=== PATIENT | female | born 1970 | race Caucasian/White ===

== ENCOUNTER 2018-10-30 13:49 | Emergency (ER) | payer OTHER ==
[~2018-10-30] VITALS: Ht 170.2 cm; Wt 91.0 kg
[~2018-10-30 13:49] MED LIST: CLIN300C8 PO; IBUP200T44 PO; MECL25TA3 PO
[2018-10-30 14:03] VITALS: BP 136/89
--- NOTE | 2018-10-30 15:26 | ED.ADGEN ---
Past History Past Medical History: Anxiety, MRSA, Other Past Surgical History: Appendectomy Smoking: Non-smoker Alcohol Use: Occasionally Drug Use: None Adult General Chief Complaint Chief Complaint Headache, paresthesias, anxiety state HPI HPI Patient is a 48-year-old female presents with nasal congestion, rhinorrhea, sinus pain, paresthesias of upper extremities and left eyes subconjunctival hemorrhage. Patient reports upper respiratory symptoms for the past 2 days with generalized feeling of unwellness. Reports increased headache started today. Patient was with her son who is also a patient in the emergency department when she decided to check in. Blood pressure noted be elevated 180s over 80s. Patient states blood pressure is normally well controlled. Does report left subconjunctival hemorrhage this morning after blowing nose. Denies fever, neck stiffness, radicular symptoms. Patient is concerned that she may be premenopausal and has had recent weight gain and increased anxiety. She has not spoken with her primary care physician regarding these symptoms. No other acute symptoms or complaints. Review of Systems Review of Systems Review symptoms as per history of present illness. All other systems were reviewed and found to be within normal limits, except as documented in this note. Allergies Allergies Allergies Coded Allergies Type Severity Reaction Last Updated Verified Sulfa (Sulfonamide Antibiotics) Allergy Intermediate Nausea and Vomiting No Physical Exam Physical Exam Constitutional: Well developed, well nourished, no acute distress, non-toxic appearance. [] HENT: Normocephalic, atraumatic, bilateral external ears normal, oropharynx moist, no oral exudates, nose normal. [] Eyes: PERRLA, EOMI, left eye, some conjunctival hemorrhage. [] Neck: Normal range of motion, no tenderness, supple, no stridor. [] Cardiovascular:Heart rate regular rhythm, no murmur [] Lungs & Thorax: Bilateral breath sounds clear to auscultation [] Abdomen: Bowel sounds normal, soft, no tenderness, no masses, no pulsatile masses. [] Skin: Warm, dry, no erythema, no rash. [] Back: No tenderness, no CVA tenderness. [] Extremities: No tenderness, no cyanosis, no clubbing, ROM intact, no edema. [] Neurologic: Alert and oriented X 3, normal motor function, normal sensory function, no focal deficits noted. [] Psychologic: Affect normal, judgement normal, mood normal. [] Current Patient Data Vital Signs Vital Signs Date Time Temp Pulse Resp B/P (MAP) Pulse Ox O2 Delivery O2 Flow Rate FiO2 10/30/18 14:03 98.3 78 20 99 Room Air EKG EKG [] Radiology/Procedures Radiology/Procedures [] Course & Med Decision Making Course & Med Decision Making Pertinent Labs and Imaging studies reviewed. (See chart for details) [Symptoms appear to be combination of upper respiratory tract symptoms and increased anxiety. Patient prefers supportive care and outpatient follow-up. I think this is reasonable.] Final Impression Final Impression [#1 headache #2 per respiratory tract infection # 3 anxiety state] Dragon Disclaimer Dragon Disclaimer This electronic medical record was generated, in whole or in part, using a voice recognition dictation system. KYLEIGH MUÑOZ DO Oct 30, 2018 15:26
== END 2018-10-30 15:20 | disposition home or self-care (01) ==
LOC: ER 13:49
DX: R51 Headache (principal); J98.8 Other specified respiratory disorders; F41.9 Anxiety disorder, unspecified; H11.32 Conjunctival hemorrhage, left eye; Z86.14 Personal history of Methicillin resistant Staphylococcus aureus infection; Z88.2 Allergy status to sulfonamides
CPT/HCPCS: 99284

== ENCOUNTER → 2019-02-16 | Outpatient (CLI) | payer OTHER ==
--- NOTE | 2019-02-16 13:00 | RAD ---
Complete abdominal ultrasound dated 02/16/2019. No comparison available. Clinical data indication: Nausea and bloating. FINDINGS: Liver is homogeneous in echogenicity. No focal hepatic mass. Intrahepatic and extrahepatic biliary tree are normal in caliber. The common bile duct measures 4 mm. Gallbladder normal in size and echogenicity. No gallbladder wall thickening or para cholecystic fluid. No gallstones are seen. Right kidney measures 10.2 cm in length. Left kidney measures 10.6 cm in length. No hydronephrosis. Spleen is homogeneous in echogenicity and measures 9.8 cm longitudinal dimension. Limited visualized portions of the pancreas aorta and IVC unremarkable. No significant ascites. IMPRESSION: 1. No acute sonographic abnormality. Electronically signed by: Tyrone Hardy MD (02/16/2019 12:57 PM) [id number]
--- NOTE | 2019-02-16 13:48 | RAD ---
Pelvic ultrasound dated 02/16/2019. No comparison available. Clinical data indication: Bloating and nausea. FINDINGS: Transabdominal and transvaginal imaging performed. Uterus measures 8.3 x 6.1 x 3.9 cm. No focal uterine mass. Endometrial complex is normal in thickness for age measuring 11 mm. Right ovary measures 2.4 x 2.3 x 2.7 cm. Left ovary measures 5.8 x 6.9 x 3.5 cm. There is a large simple appearing cyst at the left ovary that measures up to 3.4 cm. Smaller cyst at the right ovary measuring 1.2 cm. No apparent solid adnexal mass. Small amount of free pelvic fluid. IMPRESSION: 1. Bilateral ovarian cysts, measuring up to 3.4 cm on the left. 2. Mildly thickened endometrial complex, nonspecific. This could be related to menstrual cycle. Correlate clinically. 3. Small amount of free pelvic fluid, nonspecific. Electronically signed by: Tyrone Hardy MD (02/16/2019 1:45 PM) [facility]
== END | disposition home or self-care (01) ==
LOC: US 08:19
PROVIDERS: ATTEND Surgery
DX: N83.202 Unspecified ovarian cyst, left side (principal); N83.201 Unspecified ovarian cyst, right side
CPT/HCPCS: 76700; 76830; 76856

== ENCOUNTER → 2019-03-04 | Outpatient (CLI) | payer OTHER ==
[~2019-03-04] VITALS: Ht 170.2 cm; Wt 83.9 kg
[~2019-03-04] MED LIST changes: +SINCALIDE 1.68 MCG in IV NORMAL SALINE 50ML 30 ML IV ONE
--- NOTE | 2019-03-04 12:14 | RAD ---
Radionuclide hepatobiliary scan with gallbladder ejection fraction, 03/04/2019: HISTORY: Right upper quadrant pain Following IV injection of 5.5 mCi of technetium 99m Choletec there was prompt uptake of the radionuclide from the blood stream by the liver. Activity is present in the bile ducts and gallbladder at 10 minutes. Small bowel activity developed at 25 minutes. Additional imaging of the gallbladder was then performed following IV injection of 1.7 mcg of cholecystokinin. The gallbladder ejection fraction was calculated at 71 percent. IMPRESSION: 1. Normal radionuclide hepatobiliary scan. 2. The gallbladder ejection fraction is 71 percent. Electronically signed by: Mansoor Ghotra MD (03/04/2019 12:12 PM) [facility]
== END | disposition home or self-care (01) ==
LOC: NM 07:30
PROVIDERS: ATTEND Surgery
DX: R10.11 Right upper quadrant pain (principal)
CPT/HCPCS: 78227; A9537; J2805

== ENCOUNTER → 2019-03-25 | Outpatient (CLI) | payer OTHER ==
[~2019-03-25] MED LIST changes: -SINCALIDE 1.68 MCG in IV NORMAL SALINE 50ML 30 ML IV ONE
--- NOTE | 2019-03-25 12:54 | RAD ---
Radionuclide gastric emptying study, 03/25/2019: HISTORY: Nausea The study was performed utilizing a solid test meal radiolabeled with 2 mCi of technetium 99m sulfur colloid. The following gastric retention values were obtained: 1 hour-46 percent 2 hours-26 percent 3 hours-19 percent 4 hours-6 percent. These values are in the normal range. IMPRESSION: Normal gastric emptying study. Electronically signed by: Mansoor Ghotra MD (03/25/2019 12:52 PM) [facility]
== END | disposition home or self-care (01) ==
LOC: NM 07:54
PROVIDERS: ATTEND Surgery
DX: R11.0 Nausea (principal)
CPT/HCPCS: 78264; A9541

== ENCOUNTER 2021-10-07 08:42 | Emergency (ER) | payer OTHER ==
[~2021-10-07] VITALS: Ht 322.6 cm; Wt 87.0 kg
[~2021-10-07 08:42] MED LIST changes: +CLIN-95 PO; -CLIN300C8 PO; +MECL-75 PO; -MECL25TA3 PO
[2021-10-07 08:50] VITALS: BP 131/89
[2021-10-07] MEDS ORDERED: IOHEXOL 350 MG/ML 100 ML VIAL. IV ONE (09:15)
[2021-10-07] MEDS ORDERED: IV NORMAL SALINE 1,000ML 1,000 ML IV SCH (09:15)
--- NOTE | 2021-10-07 09:16 | PHYS DOC ---
Past History Past Medical History: Anxiety, MRSA, Other Past Surgical History: Appendectomy Smoking: Non-smoker Alcohol Use: Occasionally Drug Use: None General Adult EDM: Chief Complaint: RECTAL BLEED HPI: HPI: Patient is a 51-year-old female who presents to the emergency department for abdominal pain, bloating, increased gas and rectal bleeding that started 2 days ago. Patient reports that she had bright red blood while wiping 2 days ago and feels a lump near her rectum. Patient states that she does have a history of hemorrhoids. She is reporting midline lower abdominal cramping that she rates 4 out of 10. It is worse after eating. Patient has a history of diverticulitis and gallstones. She denies any nausea, vomiting, diarrhea, fevers, urinary symptoms. Her vital signs are stable and she is in no acute distress. Review of Systems: Review of Systems: Constitutional: See HPI GI: See HPI : See HPI Current Medications: Current Meds: Current Medications Medications (Trade) Dose Ordered Sig/Alex Start Time Stop Time Status Last Admin Dose Admin Fentanyl Citrate (Fentanyl 2ml Vial) 50 mcg 1X ONCE 10/07/21 09:15 10/07/21 09:16 UNV Iohexol (Omnipaque 350 Mg/ml) 100 ml 1X ONCE 10/07/21 09:15 10/07/21 09:16 UNV Sodium Chloride 1,000 ml @ 1,000 mls/hr Q1H 10/07/21 09:15 10/07/21 10:14 UNV Allergies: Allergies: Allergies Coded Allergies Type Severity Reaction Last Updated Verified Sulfa (Sulfonamide Antibiotics) Allergy Intermediate Nausea and Vomiting 04/29/14 No Physical Exam: PE: Constitutional: Well developed, well nourished, no acute distress, non-toxic appearance. [] HENT: Normocephalic, atraumatic, bilateral external ears normal, oropharynx moist, no oral exudates, nose normal. [] Eyes: PERRL, EOMI, conjunctiva normal, no discharge. [] Neck: Normal range of motion, no stridor Cardiovascular:Heart rate regular rhythm, no murmur [] Lungs & Thorax: Bilateral breath sounds clear to auscultation [] Abdomen: Bowel sounds normal, soft, lower midline abdominal tenderness with palpation, no masses, no pulsatile masses. [] Skin: Warm, dry, no erythema, no rash. [] Back: No tenderness Extremities: No tenderness, no cyanosis, no clubbing, ROM intact, no edema. [] Neurologic: Alert and oriented X 3, normal motor function, normal sensory function, no focal deficits noted. [] Psychologic: Affect normal, judgement normal, mood normal. [] Current Patient Data: Labs: Laboratory Tests Test 10/07/21 09:30 White Blood Count 5.9 x10^3/uL Red Blood Count 4.94 x10^6/uL Hemoglobin 13.3 g/dL Hematocrit 40.3 % Mean Corpuscular Volume 82 fL Mean Corpuscular Hemoglobin 27 pg Mean Corpuscular Hemoglobin Concent 33 g/dL Red Cell Distribution Width 14.9 % Platelet Count 262 x10^3/uL Neutrophils (%) (Auto) 57 % Lymphocytes (%) (Auto) 35 % Monocytes (%) (Auto) 6 % Eosinophils (%) (Auto) 1 % Basophils (%) (Auto) 1 % Neutrophils # (Auto) 3.4 x10^3uL Lymphocytes # (Auto) 2.1 x10^3/uL Monocytes # (Auto) 0.3 x10^3/uL Eosinophils # (Auto) 0.1 x10^3/uL Basophils # (Auto) 0.0 x10^3/uL Sodium Level 141 mmol/L Potassium Level 4.3 mmol/L Chloride Level 106 mmol/L Carbon Dioxide Level 23 mmol/L Anion Gap 12 Blood Urea Nitrogen 15 mg/dL Creatinine 1.1 mg/dL Estimated GFR (Cockcroft-Gault) 52.4 BUN/Creatinine Ratio 14 Glucose Level 99 mg/dL Calcium Level 8.9 mg/dL Total Bilirubin 0.4 mg/dL Aspartate Amino Transf (AST/SGOT) 13 U/L Alanine Aminotransferase (ALT/SGPT) 21 U/L Alkaline Phosphatase 74 U/L Total Protein 7.5 g/dL Albumin 4.0 g/dL Albumin/Globulin Ratio 1.1 Lipase 53 U/L Current Medications Medications (Trade) Dose Ordered Sig/Alex Route PRN Reason Start Time Stop Time Status Last Admin Dose Admin Sodium Chloride 1,000 ml @ 1,000 mls/hr Q1H IV 10/07/21 09:15 10/07/21 10:14 10/07/21 09:22 Fentanyl Citrate (Fentanyl 2ml Vial) 50 mcg 1X ONCE IVP 1/3/22 09:15 10/07/21 09:16 DC 10/07/21 09:23 Iohexol (Omnipaque 350 Mg/ml) 100 ml 1X ONCE IV 10/07/21 09:15 10/07/21 09:16 DC 10/07/21 09:38 Info (Do NOT chart on this entry -- for MONITORING) 1 each PRN DAILY PRN MC SEE COMMENTS 10/07/21 09:30 10/09/21 09:29 Vital Signs: Vital Signs Date Time Temp Pulse Resp B/P (MAP) Pulse Ox O2 Delivery O2 Flow Rate FiO2 10/07/21 08:50 88 18 131/89 (103) 99 Room Air EKG: EKG: [] Radiology/Procedures: Radiology/Procedures: []PROCEDURE: CT ABD PELV W/ IV CONTRST ONLY Examination: CT of the abdomen pelvis with IV contrast HISTORY: History of lower abdominal pain, rectal bleeding COMPARISON: 07/29/2014 TECHNIQUE: Axial CT images of the abdomen pelvis with IV contrast. Coronal and s agittal reformats are performed Exposure: One or more of the following individualized dose reduction techniques were utilized for this examination: 1. Automated exposure control 2. Adjustment of the mA and/or kV according to patient size 3. Use of iterative reconstruction technique Findings: The bibasilar lungs are clear. No evidence of free air identified in the abdomen. Partially visualized bilateral breast prosthesis is identified. The liver, spleen, adrenals grossly appears unremarkable. The gallbladder is mildly distended. The stomach is mildly distended. The visualized pancreas grossly appears unremarkable. The small bowel is nondilated. Feces and gas noted in the colon.Multiple descending and sigmoid colon diverticulosis. Minimal fat stranding identified about the sigmoid colon. Urinary bladder is mildly distended The bilateral kidneys enhance symmetrically. No evidence of lytic bony destructive lesion. IMPRESSION: 1.Multiple descending and sigmoid colon diverticulosis. Minimal fat stranding identified about the sigmoid colon, nonspecific could be mild colitis.. Electronically signed by: Adolfo Melendez MD (10/07/2021 9:58 AM) [id number] DICTATED AND SIGNED BY: ADOLFO MELENDEZ MD DATE: 10/07/21 0948 CC: JULIAN BENITO MD; BEATRIZ GARCIA DEBURRING AND TOOLING MACHINE OPERATOR ~MTH0 0 Heart Score: C/O Chest Pain: N/A Risk Factors: Risk Factors: DM, Current or recent (<one month) smoker, HTN, HLP, family history of CAD, obesity. Risk Scores: Score 0 - 3: 2.5% MACE over next 6 weeks - Discharge Home Score 4 - 6: 20.3% MACE over next 6 weeks - Admit for Clinical Observation Score 7 - 10: 72.7% MACE over next 6 weeks - Early Invasive Strategies Course & Med Decision Making: Course & Med Decision Making Pertinent Labs and Imaging studies reviewed. (See chart for details) Patient presents to the emergency department today for lower abdominal pain and rectal bleeding that started on October 05. She states that she is also having bloating and increased gas. Abdominal pain is worse after eating. Upon physical exam, patient has a small external hemorrhoid that is bleeding. Patient has no internal hemorrhoids felt. Patient does have a history of diverticulitis and gallstones. Work-up in the ER consisted of blood work, urinalysis and CT imaging of abdomen and pelvis. Patient treated with IV fluids and pain medication.Blood work unremarkable. CT scan showed mild colitis. UA showed a urinary tract infection. Patient will be treated with an antibiotic. Patient's will also be discharged home with Bentyl for her abdominal cramping. I discussed with patient all findings and diagnostic testing as well as the need to follow-up with PCP for further evaluation and treatment or return to the ER if any new or worsening symptoms. Strict return precautions were also discussed at length. Patient voiced understanding and agreement with the plan. Patient is hemodynamically stable at the time of disposition. Jovana Disclaimer: Jovana Disclaimer: This electronic medical record was generated, in whole or in part, using a voice recognition dictation system. Departure Departure: Impression: Primary Impression: Colitis Additional Impression: Urinary tract infection Qualified Codes: N30.00 - Acute cystitis without hematuria Disposition: HOME / SELF CARE / HOMELESS Condition: GOOD Referrals: JULIAN BENITO MD (PCP) Patient Instructions: Abdominal Pain (Nonspecific), Urinary Tract Infection Additional Instructions: You were seen in the emergency department today for abdominal pain and rectal bleeding. Your rectal pain is due to a hemorrhoid that you have. Please use the Anusol that you purchased for your symptoms. You were noted to have colitis but your blood work was reassuring. You are being discharged home with a medication called Bentyl to help with your abdominal cramping. I would stick to a bland diet over the next 24 to 48 hours which includes bananas, rice, applesauce and toast. Please avoid eating anything but spicy, greasy or fatty. You were also noted to have a urinary tract infection and you will be treated with an antibiotic. Please start and finish the antibiotic completely. Increase your fluids and avoid any bladder irritants like caffeine, sugary beverages or alcohol. Please follow-up with your primary care provider tomorrow regarding your ER visit. Please return to the emergency department if you develop worsening of your abdominal pain or rectal bleeding, lightheadedness, high fevers refractory to treatment, intractable nausea or vomiting or any new or worsening concerns. Scripts Cephalexin (KEFLEX) 500 Mg Capsule 1 CAP PO BID for uti for 7 Days, #14 CAP 0 Refills Prov: BEATRIZ GARCIA DEBURRING AND TOOLING MACHINE OPERATOR 10/07/21 Dicyclomine Hcl (DICYCLOMINE HCL) 10 Mg Capsule 1 CAP PO PRN Q6HRS for abdominal cramping for 5 Days, #20 CAP 0 Refills Prov: BEATRIZ GARCIA DEBURRING AND TOOLING MACHINE OPERATOR 10/07/21 BEATRIZ GARCIA APRN Oct 07, 2021 09:16
[2021-10-07] MEDS ORDERED: CONTRAST GIVEN. MC PRN (09:30)
[2021-10-07 09:43] LABS: BASO % 1 % (0-3); EOS # 0.1 x10^3/uL (0.0-0.7); EOS % 1 % (0-3); HEMATOCRIT 40.3 % (36.0-47.0); HEMOGLOBIN 13.3 g/dL (12.0-15.5); LYMPH # 2.1 x10^3/uL (1.0-4.8); LYMPH % 35 % (24-48); MEAN CORPUSCULAR HEMOGLOBIN 27 pg (25-35); MEAN CORPUSCULAR HGB CONC 33 g/dL (31-37); MEAN CORPUSCULAR VOLUME 82 fL (79-100); MONO # 0.3 x10^3/uL (0.0-1.1); MONO % 6 % (0-9); NEUT # 3.4 x10^3uL (1.8-7.7); NEUT % 57 % (31-73); PLATELET COUNT 262 x10^3/uL (140-400); RED BLOOD COUNT 4.94 x10^6/uL (3.50-5.40); RED CELL DISTRIBUTION WIDTH 14.9 % (11.5-14.5); WHITE BLOOD COUNT 5.9 x10^3/uL (4.0-11.0)
[2021-10-07 09:54] LABS: CALCIUM 8.9 mg/dL (8.5-10.1); CREATININE 1.1 mg/dL (0.6-1.0); GFR 52.4; POTASSIUM 4.3 mmol/L (3.5-5.1)
[2021-10-07 10:00] LABS: ALBUMIN/GLOBULIN RATIO 1.1 (1.0-1.7); TOTAL BILIRUBIN 0.4 mg/dL (0.2-1.0); TOTAL PROTEIN 7.5 g/dL (6.4-8.2)
--- NOTE | 2021-10-07 10:01 | RAD ---
Examination: CT of the abdomen pelvis with IV contrast HISTORY: History of lower abdominal pain, rectal bleeding COMPARISON: 07/29/2014 TECHNIQUE: Axial CT images of the abdomen pelvis with IV contrast. Coronal and sagittal reformats are performed Exposure: One or more of the following individualized dose reduction techniques were utilized for thi s examination: 1. Automated exposure control 2. Adjustment of the mA and/or kV according to patient size 3. Use of iterative reconstruction technique Findings: The bibasilar lungs are clear. No evidence of free air identified in the abdomen. Partially visualize d bilateral breast prosthesis is identified. The liver, spleen, adrenals grossly appears unremarkable . The gallbladder is mildly distended. The stomach is mildly distended. The visualized pancreas gross ly appears unremarkable. The small bowel is nondilated. Feces and gas noted in the colon.Multiple allie cending and sigmoid colon diverticulosis. Minimal fat stranding identified about the sigmoid colon. U rinary bladder is mildly distended The bilateral kidneys enhance symmetrically. No evidence of lytic bony destructive lesion. IMPRESSION: 1.Multiple descending and sigmoid colon diverticulosis. Minimal fat stranding identified about the si gmoid colon, nonspecific could be mild colitis.. Electronically signed by: Adolfo Melendez MD (10/07/2021 9:58 AM) [id number]
[2021-10-07 10:41] LABS: BACTERIA,URINE FEW /HPF (0-FEW); BILIRUBIN,URINE NEG (NEG); CLARITY,URINE HAZY; COLOR,URINE YELLOW; GLUCOSE,URINE NEG (NEG); NITRITE,URINE NEG (NEG); SQUAMOUS EPITHELIAL CELL,UR MANY /LPF; UROBILINOGEN,URINE 0.2 mg/dL (0.2 mg/dL)
[2021-10-07] MEDS ORDERED: DICY10CA3 PO (10:51)
[2021-10-07] MEDS ORDERED: CEPH500C PO (10:51)
== END 2021-10-07 11:41 | disposition home or self-care (01) ==
LOC: ER 08:42
DX: K52.9 Noninfective gastroenteritis and colitis, unspecified (principal); N30.00 Acute cystitis without hematuria; Z90.89 Acquired absence of other organs; Z88.2 Allergy status to sulfonamides
CPT/HCPCS: 36415; 74177; 80053; 81001; 83690; 85025; 87086; 96361; 96374; 99285; J3010; J7030; Q9967

== ENCOUNTER → 2022-02-14 | Outpatient (CLI) | payer OTHER ==
[~2022-02-14] MED LIST changes: +CEPH500C PO; +DICY10CA3 PO
--- NOTE | 2022-02-14 13:44 | RAD ---
EXAM: CONTRAST ENEMA INDICATION: Incomplete colonoscopy. TECHNIQUE: A Cedeno balloon was inflated in the rectum. Dilute Omnipaque was infused into the colon. Findings/ impression: [employer] Field Service Technician image demonstrates unremarkable bowel gas pattern.The colon is normal in caliber and position, and there are no strictures however evaluation is limited due to folding of the bowel onto itself in the splenic flexure, sigmoid colon, hepatic flexure region.. The rectum distends well. Multiple scatt ered colonic diverticulosis in the descending, sigmoid colon region. Total fluoroscopic time was not provided. Electronically signed by: Adolfo Melendez MD (02/14/2022 1:41 PM) [id number]
== END ==
LOC: RAD 08:09
PROVIDERS: ATTEND Internal Medicine Gastroenterology
DX: K56.699 Other intestinal obstruction unspecified as to partial versus complete obstruction (principal)
CPT/HCPCS: 74270